=== PATIENT | female | born 1965 | race Caucasian/White ===

== ENCOUNTER 2022-02-12 05:52 | Day surgery (SDC) | payer OTHER ==
[2022-02-12] MEDS ORDERED: LIDOCAINE 2% 30 ML JELLY TP ONE (05:53)
[2022-02-12] MEDS ORDERED: LIDOCAINE 4% 50 ML SOLUTION TP ONE (05:53)
[2022-02-12] MEDS ORDERED: ALBUTEROL SULFATE 2.5 MG/0.5 ML NEB SOLUTION NEB ONE (05:53)
[2022-02-12] MEDS ORDERED: BENZOCAINE 20% 50 MCG/SPRAY 57 GM TP ONE (05:53)
[2022-02-12 06:36] LABS: COVID AG,FIA SOURCE NASAL SWAB
[2022-02-12] MEDS ORDERED: SODIUM CHLORIDE 0.9% 1,000 ML IV ONE (07:00)
[2022-02-12] MEDS ORDERED: SODIUM CHLORIDE 0.9% 10 ML ONE (07:19)
[2022-02-12] MEDS ORDERED: MIDAZOLAM HCL 5 MG/ML VIAL ONE (07:46)
[2022-02-12] MEDS ORDERED: FentaNYL CITRATE PF 100 MCG/2 ML VIAL ONE (07:46)
[2022-02-12] MEDS ORDERED: MethylPREDNISolone SOD SUCC 125 MG/2 ML VIAL ONE (08:57)
[2022-02-12] MEDS ORDERED: MethylPREDNISolone SOD SUCC 125 MG/2 ML VIAL IVP ONE (09:00)
[2022-02-12] MEDS ORDERED: OXYGEN THERAPY IH SCH (20:00)
== END 2022-02-12 11:30 | disposition home or self-care (01) ==
LOC: SURGERY 05:52
PROVIDERS: ATTEND Internal Medicine Critical Care Medicine
DX: J38.4 Edema of larynx (principal); B37.0 Candidal stomatitis; Z79.899 Other long term (current) drug therapy
CPT/HCPCS: 31623; 31624; 71045; 71250; 87015; 87070; 87101; 87206; 87220; 87426; 88184; 88185; C9803; J2250; J2930; J3010; 88108; 88305; J7613; Z7610